=== PATIENT | female | born 1975 | race Two or more races ===

== ENCOUNTER 2018-04-12 05:27 | Day surgery (SDC) | payer BC ==
[2018-04-12] MEDS ORDERED: LIDOCAINE 1% 2 ML INJ ID PRN (05:56)
[2018-04-12] MEDS ORDERED: LR 1,000 ML IV ONE (05:56)
--- NOTE | 2018-04-12 06:05 | PDGENHP ---
History and Physical History and Physical: Assessment and Plan: 1. Pelvic pain in lupillo Delgado's right-sided pelvic pain is somewhat concerning for endometriosis. She has no other explanation for her pain. We did discuss seeing a global implementation manager. However the most likely GI cause would be adhesions tethering the bowel to the abdominal wall. She has no risk factors other than endometriosis for such symptoms. We reviewed all conservative and surgical options. At the end of our discussion she is interested in laparoscopic exploration with excision of endometriosis and possible BSO if indicated. 2. Endometriosis of pelvic peritoneum 3. Dyschezia Subjective: Patient ID: Sandy Moss is a 42 y.o. female who presents to [facility] for pelvic pain. JELANI Delgado is a 42-year-old para 2 woman who presents to discuss pelvic pain. She has a history of pelvic pain and underwent a vaginal hysterectomy by Dr. Alexander Earl in 2008. She apparently had some sort of ovarian cysts and a portion of one of her ovaries was removed. She also underwent what sounds like an anterior transvaginal mesh and a mid urethral sling. She states that her pain improved after surgery but her symptoms have returned in the last year. She now complains of right-sided abdominal pain lateral to the level of the umbilicus. She feels like there is a baseball inside. She also feels a ripping sensation when she is stretching in certain directions. The pain is constant. She also feels a tugging sensation in the same location which she feels is due to stool passing through her intestine along this area. She has no dyspareunia. She does have dyschezia which again is that same area. She also apparently has a history of interstitial cystitis which improved after surgery and has been well controlled by diet. She went back and saw Dr. Earl somewhat recently who recommended performing a bilateral oophorectomy. She then saw Dr. Silvestre, a seasonal package handler in [place], who thought she had endometriosis and recommended Lupron. She lives in [place]. She is and works as a sound system installer in [place]. She has had 2 vaginal deliveries, the largest of which is 9 pounds. She has no stress incontinence. PastMedicalHistory Past Medical History: Diagnosis Date Chronic kidney disease Benign right kidney tumor Depression Endometriosis IC (interstitial cystitis) Trauma PastSurgicalHistory Past Surgical History: Procedure Laterality Date ABDOMEN SURGERY "Tummy Tuck" BREAST SURGERY Breast reduction HYSTERECTOMY 2009 TONSILLECTOMY CURRENT MEDICATIONS: Current Outpatient Medications Medication Sig IBUPROFEN PO Take by mouth as needed. No current facility-administered medications for this visit. ALLERGIES: Patient has no known allergies. I have reviewed, verified and agree with the past medical, surgical, , family, social and ROS history as documented by the RN today. Objective: Vital Signs: Visit Vitals BP 98/62 Pulse 78 Temp 37.1 C (98.7 F) (Temporal) Resp 14 Ht 1.562 m (5' 1.5") Wt 60.3 kg (133 lb) SpO2 99% BMI 24.72 kg/m Physical Exam Gen: This is an alert, well developed woman in no distress. Neuro: She moves all extremities. Psych: She is appropriate, oriented, with normal affect. Neck: No thyroid enlargement, adenopathy, or tenderness. Lungs: Clear to ascultation, no wheezes or rales. Heart: Regular rate and rhythm without obvious murmurs. Abdomen: Soft, non-tender, without guarding, rebound, or masses. Extremities: No edema or cyanosis. Pelvic: Normal external genitalia. Non-gaping introitus, vagina without discharge, adequately estrogenized, no significant prolapse. Cervix without lesions or discharge. Uterus normal sized, mobile, non-tender. Adnexa non- tender without enlargement. There is no significant tenderness along the vaginal cuff nor the posterior cul-de-sac. DATA: I have reviewed the pertinent medical records. PELVIC ULTRASOUND Indication: Follow-up ovarian cyst. Findings: The uterus is surgically absent. The left ovary measures 2.2 x 1.5 x 2.3 cm. It contains a fluid-filled cystic structure measuring 1.0 cm. The right ovary is not visualized. Impression: Simple 1 cm left ovarian cyst. TIME/COMMUNICATION: I personally spent a total of 60 minutes. Of that 40 minutes was counseling/ coordination of patient's care. See my note above for details. Austin Aguirre MD Board Certified Female Pelvic Medicine and Reconstructive Surgery Director of Minimally Invasive Gynecologic Surgery, [facility] Surgeon in Minimally Invasive Gynecologic Surgery [facility] Surgeon in Robotic Surgery
[2018-04-12] MEDS ORDERED: ceFAZolin 2 GM/DEXTROSE 100 ML IV ONE (06:40)
[2018-04-12] MEDS ORDERED: GABAPENTIN 300 MG CAP PO ONE (06:40)
[2018-04-12] MEDS ORDERED: PHENAZOPYRIDINE HCL 200 MG TAB PO ONE (06:40)
[2018-04-12] MEDS ORDERED: ACETAMINOPHEN 500 MG TAB PO ONE (06:40)
[2018-04-12] MEDS ORDERED: PROPOFOL 200 MG/20 ML VIAL ONE (07:04)
[2018-04-12] MEDS ORDERED: HYDROmorphONE/DILAUDID 2 MG/ML INJ ONE (07:05)
[2018-04-12] MEDS ORDERED: fentaNYL 100 MCG/2 ML INJ ONE ×2 (07:06→09:38)
[2018-04-12] MEDS ORDERED: DEXAMETHASONE 4 MG/ML VIAL ONE (07:07)
[2018-04-12] MEDS ORDERED: ROCURONIUM 50 MG/5 ML VIAL ONE (07:07)
--- NOTE | 2018-04-12 07:09 | PDHPUP ---
History & Physical Update H&P update statement: This history and physical update is based on an assessment of the patient which was completed after admission or registration (within 24 hours), but prior to the surgery/procedure. H&P update: H&P reviewed & patient examined
--- NOTE | 2018-04-12 07:11 | PDANEPAE ---
ANE Past Medical History - Cardiovascular History Hx Hypertension: No Hx Arrhythmias: No Hx Chest Pain: No Hx Coronary Artery / Peripheral Vascular Disease: No Hx CHF / Valvular Disease: No Hx Palpitations: No - Pulmonary History Hx COPD: No Hx Asthma/Reactive Airway Disease: No Hx Recent Upper Respiratory Infection: No Hx Oxygen in Use at Home: No Hx Sleep Apnea: No Sleep Apnea Screening Result - Last Documented: Negative - Neurologic History Hx Cerebrovascular Accident: No Hx Seizures: No Hx Dementia: No - Endocrine History Hx Diabetes: No - Renal History Hx Renal Disorders: Yes Renal History Comment: 2009 INTERSTITIAL CYSTITIS - Liver History Hx Hepatic Disorders: No - Neurological & Psychiatric Hx Hx Neurological and Psychiatric Disorders: No - Cancer History Hx Cancer: No - Congenital Disorder History Hx Congenital Disorders: No - GI History Hx Gastrointestinal Disorders: No - Chronic Pain History Chronic Pain: Yes (LOWER RT SIDE) - Surgical History Prior Surgeries: HYSTERECTOMY. [place] BREAST REDUCTION. TONSILLECTOMY ANE Review of Systems Review of Systems: - Exercise capacity Exercise capacity: >=4 METS ANE Patient History - Allergies Allergies/Adverse Reactions: No Known Allergies Allergy (Unverified 03/31/18 14:04) - Home Medications Home medications: home medication list seen and reviewed Home Medications: Herbals/Supplements -Info Only DAILY 03/31/18 [Last Taken 03/30/18] - NPO status NPO Status: no food or drink >8 hours NPO Since - Liquids (Date): 04/12/18 NPO Since - Liquids (Time): 04:00 NPO Since - Solids (Date): 04/11/18 NPO Since - Solids (Time): 18:00 - Anes Hx Anes Hx: slow to awaken from anesthesia - Smoking Hx Smoking Status: Former smoker - Family Anes Hx Family Anes Hx: neg - N/A ANE Labs/Vital Signs - Vital Signs Vital Signs: reviewed preoperatively; see RN documention for details Blood Pressure: 107/72 Heart Rate: 77 Respiratory Rate: 20 O2 Sat (%): 94 Height: 157.48 cm Weight: 58.967 kg ANE Physical Exam - Airway Neck exam: FROM Mallampati Score: Class 1 Mouth exam: normal dental/mouth exam - Pulmonary Pulmonary: clear to auscultation - Cardiovascular Cardiovascular: regular rate and rhythym - ASA Status ASA Status: II ANE Anesthesia Plan Anesthesia Plan: general endotracheal anesthesia
[2018-04-12] MEDS ORDERED: LIDOCAINE 2% 100 MG/5 ML SYR ONE (07:15)
[2018-04-12] MEDS ORDERED: BUPIVACAINE/EPI 0.5% 30 ML SDV ONE (07:19)
--- NOTE | 2018-04-12 08:00 | POSTANESTH ---
Post Anesthetic Evaluation Cardiovascular Status: Normal, Stable Respiratory Status: Normal, Stable Level of Consciousness/Mental Status: Can Participate in Eval Pain Control: Adequate, Prn Tx Ordered Nausea/Vomiting Control: Adequate, Prn Tx Ordered Complications Possibly Related to Anesthesia: None Noted
[2018-04-12] MEDS ORDERED: KETOROLAC 30 MG/1 ML SDV ONE (08:25)
[2018-04-12] MEDS ORDERED: ONDANSETRON 4 MG/2 ML VIAL ONE ×4 (08:25→11:48)
[2018-04-12] MEDS ORDERED: GLYCOPYRROLATE 0.2 MG/1 ML VIAL ONE ×2 (08:27→08:37)
[2018-04-12] MEDS ORDERED: NEOSTIGMINE METHYLSULFATE 5 MG/5 ML SYR ONE (08:27)
[2018-04-12] MEDS ORDERED: PHENYLEPHRINE HCL 100 MCG/ML SYR IVP PRN (08:29)
[2018-04-12] MEDS ORDERED: DIAZEPAM 5 MG/ML 1 ML SYR IVP PRN (08:29)
[2018-04-12] MEDS ORDERED: oxyCODONE IR 5 MG TAB PO PRN (08:29)
[2018-04-12] MEDS ORDERED: NALOXONE HCL 0.4 MG/ML INJ IVP PRN (08:29)
[2018-04-12] MEDS ORDERED: METOCLOPRAMIDE 10 MG/2 ML VIAL IVP PRN (08:29)
[2018-04-12] MEDS ORDERED: MEPERIDINE 25 MG/0.5 ML AMP IVP PRN (08:29)
[2018-04-12] MEDS ORDERED: HYDROmorphONE/DILAUDID 2 MG/ML INJ IVP PRN (08:29)
[2018-04-12] MEDS ORDERED: ALBUTEROL 3 ML DEYVIAL IH PRN (08:29)
[2018-04-12] MEDS ORDERED: DEXAMETHASONE 4 MG/ML VIAL IVP PRN (08:29)
[2018-04-12] MEDS ORDERED: LR 500 ML IV PRN (08:29)
[2018-04-12] MEDS ORDERED: ACETAMINOPHEN 500 MG TAB PO PRN (08:29)
[2018-04-12] MEDS ORDERED: PROMETHAZINE HCL 25 MG/ML INJ IVP PRN (08:29)
--- NOTE | 2018-04-12 08:51 | POSTOPPROG ---
Post Op Note Date of Operation: 04/12/18 Surgeon: Austin Aguirre Performance Improvement Analyst: Filomena Porter Anesthesiologist: Amara Anesthesia: GET(General Endotracheal) Pre-op Diagnosis: Pelvic pain Post-op Diagnosis: Same plus endo Procedure: Robotic exision of endo, bilat ureterolysis and BSO Findings: Enso Inf/Abcess present in the surg proc area at time of surgery?: No EBL: Minimal Complications: None Specimen(s): Bilat tubes and ovaries Peritoneum
--- NOTE | 2018-04-12 09:37 | GOP ---
DATE OF OPERATION: 04/12/2018 SURGEON: Austin Aguirre MD CERTIFIED COATINGS INSPECTOR: Filomena Porter CFA ANESTHESIA: General. PREOPERATIVE DIAGNOSIS: 1. Pelvic and abdominal pain. 2. Interstitial cystitis. POSTOPERATIVE DIAGNOSIS: 1. Pelvic and abdominal pain. 2. Interstitial cystitis. 3. Endometriosis. PROCEDURE PERFORMED: 1. Robotic excision of endometriosis in anterior and posterior cul-de-sac and bilateral pelvic side go. 2. Bilateral ureterolysis. 3. Bilateral salpingo-oophorectomy. 4. Cystoscopy. FINDINGS: SPECIMENS: 1. Bilateral tubes and ovaries. 1. Pelvic peritoneum with endometriosis. 2. ESTIMATED BLOOD LOSS: Scant. DESCRIPTION OF PROCEDURE: The patient was taken to the operating room where she was identified. Gen eral anesthesia was administered and found be adequate. She was placed in the lithotomy position and prepared and draped in normal sterile fashion. A Tovar catheter was placed in her bladder. A 1 cm incision was made at the superior margin of the umbilicus. The Veress needle with the CO2 gas flowing was advanced into the peritoneal cavity. The abdomen was then insufflated with carbon dioxi de gas. The 12 mm trocar, followed by the laparoscope were then inserted. The upper abdomen was unr emarkable. There was no evidence of endometriosis on either diaphragm or upper abdominal bowel. The right mid abdomen where the patient complained of abdominal pain was extensively examined. No obvio us pathology was seen. Two lateral ports were placed in the right and 1 on the left under direct vis ualization. She then was placed in Trendelenburg position and the da Nash robot docked on the left side. The instruments were then brought into the abdominal cavity under direct visualization. Patient was noted to have filmy endometriosis in the anterior and posterior cul-de-sacs, as well as b oth pelvic sidewalls overlying both ureters. There was filmy endometriosis overlying the adnexa as w ell; as a result, the decision was made to perform a bilateral salpingo-oophorectomy. The posterior cul-de-sac peritoneum from the distal rectum up to the vaginal cuff and laterally to th e uterosacral ligaments was completely excised. The infundibulopelvic vessels were then skeletonized anterior to the ureters. They were then cauterized and transected. A bilateral ureterolysis was th en required. The peritoneum at the pelvic brims was incised. The ureters were gently dissected free and lateralized from the pelvic brim all the way down to the bladder. Once this was accomplished, t he entire pelvic sidewall peritoneum was completely excised. A sponge stick was placed in the vagina. The anterior cul-de-sac peritoneum was then excised off the vagina and proximal bladder. All specimens were then removed. The robot was then undocked. The fa scia was closed with 0 Vicryl, skin with 4-0 Monocryl. Cystoscopy was then performed. Both ureters had vigorous jets of urine. There was no evidence of bl adder injury seen. There were 2 small Hunner's ulcers seen at the posterior dome of the bladder. Ph otographs were taken. Anesthesia was then reversed the patient taken the PACU awake, in stable condi tion. COMPLICATIONS: None. DISPOSITION: Patient stable to PACU. /[id number]/MODL
[2018-04-12] MEDS ORDERED: oxyCODONE IR 5 MG TAB ONE (09:38)
[2018-04-12] MEDS: fentaNYL 100 MCG/2 ML INJ IVP PRN ×2 (09:40→09:51)
[2018-04-12] MEDS: ONDANSETRON 4 MG/2 ML VIAL IVP PRN ×3 (09:50→11:49)
[2018-04-12 12:21] VITALS: BP 99/57
== END 2018-04-12 12:19 | disposition home or self-care (01) ==
LOC: FSGY 05:27
PROVIDERS: ATTEND Obstetrics & Gynecology
DX: R10.2 Pelvic and perineal pain (principal); N94.6 Dysmenorrhea, unspecified; N30.10 Interstitial cystitis (chronic) without hematuria; F32.9 Major depressive disorder, single episode, unspecified; N28.9 Disorder of kidney and ureter, unspecified; Z87.891 Personal history of nicotine dependence; Z90.710 Acquired absence of both cervix and uterus
CPT/HCPCS: J0690; J1100; J1170; J1885; J2001; J2405; J2704; J2710; J3010